=== PATIENT | female | born 1985 | race Caucasian/White ===

== ENCOUNTER 2022-09-26 06:00 | Inpatient (IN) | payer OTHER ==
[~2022-09-26 06:00] MED LIST: CITRIC ACID/SODIUM CITRATE 30 ML UNIT-DOSE CUP PO ONE; ELECTROLYTE-148 SOLN 500 ML IV ONE
[2022-09-26] MEDS ORDERED: ELECTROLYTE-148 SOLN 1,000 ML IV SCH ×2 (06:30→10:00)
[2022-09-26 06:50] VITALS: BMI 31.8
[2022-09-26] MEDS ORDERED: morphine SULFATE/PF 1 MG/2 ML (2cc Syringe - QUVA) ONE (07:40)
[2022-09-26] MEDS ORDERED: MIDAZOLAM HCL 2 MG/2 ML SINGLE DOSE VIAL ONE (08:36)
[2022-09-26] MEDS ORDERED: morphine SULFATE/PF 1 MG/2 ML (2cc Syringe - QUVA) EP ONE (09:50)
[2022-09-26] MEDS ORDERED: ELECTROLYTE-148 SOLN 500 ML IV ONE (10:00)
[2022-09-26] MEDS ORDERED: CITRIC ACID/SODIUM CITRATE 30 ML UNIT-DOSE CUP PO ONE (10:00)
[2022-09-26] MEDS ORDERED: ACETAMINOPHEN 325 MG TABLET (FP) PO PRN (10:01)
[2022-09-26] MEDS ORDERED: METHYLERGONOVINE MALEATE 0.2 MG/1 ML AMP IM PRN (10:01)
[2022-09-26] MEDS: OXYTOCIN 20 UNITS in 0.9% NS 20 UNIT/1,000 ML INFUS.BAG IV SCH ×2 (10:30→20:30)
[2022-09-26] MEDS ORDERED: OXYTOCIN 20 UNITS in 0.9% NS 20 UNIT/1,000 ML INFUS.BAG IV ONE (10:35)
[2022-09-26] MEDS: IBUPROFEN 800 MG/8 ML IJ IVPB PRN ×2 (11:20→20:32)
[2022-09-26 20:15] VITALS: RESP 18
[2022-09-26] MEDS: FERROUS SO4 325 MG TABLET (FP) PO SCH (22:00)
[2022-09-26] MEDS ORDERED: ZOLPIDEM TARTRATE 5 MG TABLET PO ONE (22:00)
[2022-09-27] MEDS: oxyCODONE HCL 5 MG TABLET PO PRN ×4 (06:15→22:39)
[2022-09-27] MEDS: SIMETHICONE 80 MG TAB.CHEW (FP) PO PRN ×2 (06:15→20:18)
[2022-09-27 07:12] LABS: BASO % 0.2 % (0-2.0); EOS % 0.5 % (0-4.5); HEMATOCRIT 26.9 % (32.4-45.2); HEMOGLOBIN 9.3 GM/dL (10.7-15.3); LYMPH % 12.3 % (8-40); MCH 30.1 pg (25.7-33.7); MCHC 34.7 g/dl (32.0-36.0); MEAN CELL VOLUME 86.6 fl (80-96); MEAN PLT VOLUME 8.3 fl (7.5-11.1); PLATELET COUNT 173 10^3/uL (134-434); RBC 3.11 M/mm3 (3.60-5.2); RDW 12.4 % (11.6-15.6); WHITE BLOOD COUNT 12.2 K/mm3 (4.0-10.0)
[2022-09-27] MEDS: IBUPROFEN 600 MG TABLET (FP) PO PRN ×2 (09:06→20:19)
[2022-09-27] MEDS: PRENATAL VITAMINS W/ FOLIC ACID TABLET (FP) PO SCH (09:06)
[2022-09-27] MEDS: FERROUS SO4 325 MG TABLET (FP) PO SCH ×2 (09:06→22:13)
[2022-09-27] MEDS ORDERED: BISACODYL 10 MG SUPP.RECT RC PRN (10:01)
[2022-09-27] MEDS: SENNOSIDES/DOCUSATE COMBO (SENNA PLUS) TABLET (UD) PO PRN (20:18)
[2022-09-27] MEDS ORDERED: ZOLPIDEM TARTRATE 5 MG TABLET PO ONE (22:30)
[2022-09-28] MEDS: IBUPROFEN 600 MG TABLET (FP) PO PRN (08:28)
[2022-09-28] MEDS: SIMETHICONE 80 MG TAB.CHEW (FP) PO PRN ×3 (08:29→22:11)
[2022-09-28] MEDS: FERROUS SO4 325 MG TABLET (FP) PO SCH ×2 (09:58→22:11)
[2022-09-28] MEDS: PRENATAL VITAMINS W/ FOLIC ACID TABLET (FP) PO SCH (09:58)
[2022-09-28] MEDS: oxyCODONE HCL 5 MG TABLET PO PRN ×3 (12:21→22:11)
[2022-09-28] MEDS ORDERED: ZOLPIDEM TARTRATE 5 MG TABLET PO ONE ×2 (20:45→22:00)
[2022-09-28] MEDS: SENNOSIDES/DOCUSATE COMBO (SENNA PLUS) TABLET (UD) PO PRN (22:11)
[2022-09-29] MEDS: IBUPROFEN 600 MG TABLET (FP) PO PRN ×2 (05:43→10:01)
[2022-09-29] MEDS: SIMETHICONE 80 MG TAB.CHEW (FP) PO PRN ×2 (05:43→10:01)
[2022-09-29 09:45] VITALS: BP 122/79; PULSE 92; TEMP 98.9
[2022-09-29] MEDS: PRENATAL VITAMINS W/ FOLIC ACID TABLET (FP) PO SCH (10:00)
[2022-09-29] MEDS: FERROUS SO4 325 MG TABLET (FP) PO SCH (10:00)
== END 2022-09-29 12:45 | disposition home or self-care (01) | DRG 540 ==
LOC: JLDR 06:00 → J3W 10:50
PROVIDERS: ADMIT Obstetrics & Gynecology; ATTEND Obstetrics & Gynecology
PROC: 10D00Z1 Extraction of Products of Conception, Low, Open Approach (ICD-10-PCS; principal; 2022-09-26)
DX: O36.63X0 Maternal care for excessive fetal growth, third trimester, not applicable or unspecified (principal); O34.13 Maternal care for benign tumor of corpus uteri, third trimester; Z3A.39 39 weeks gestation of pregnancy; Z37.0 Single live birth
CPT/HCPCS: 36415; 85025; 88305-TC; 88307-TC; 94010

== ENCOUNTER 2022-11-28 18:16 | Inpatient (IN) | payer OTHER ==
[2022-11-28 20:23] LABS: BASO % 0.8 % (0-2.0); EOS % 1.2 % (0-4.5); HEMATOCRIT 39.2 % (32.4-45.2); HEMOGLOBIN 12.6 GM/dL (10.7-15.3); LYMPH % 33.6 % (8-40); MCH 27.7 pg (25.7-33.7); MCHC 32.3 g/dl (32.0-36.0); MEAN CELL VOLUME 85.8 fl (80-96); MEAN PLT VOLUME 8.7 fl (7.5-11.1); MONO % 14.6 % (3.8-10.2); NEUT % 49.8 % (42.8-82.8); PLATELET COUNT 208 10^3/uL (134-434); RBC 4.57 M/mm3 (3.60-5.2); WHITE BLOOD COUNT 5.2 K/mm3 (4.0-10.0)
[2022-11-28 20:43] LABS: POTASSIUM 4.1 mmol/L (3.5-5.1)
[2022-11-28 20:44] LABS: CALCIUM 9.1 mg/dL (8.5-10.1)
[2022-11-28 20:45] LABS: ALBUMIN 3.4 g/dl (3.4-5.0); BLOOD UREA NITROGEN 15.1 mg/dL (7-18)
[2022-11-28] MEDS ORDERED: CLINDAMYCIN 600MG PREMIX IVPB 600 MG/50 ML BAG IVPB ONE ×2 (20:45→20:49)
[2022-11-28 20:48] LABS: CREATININE 0.6 mg/dL (0.55-1.3)
[2022-11-28] MEDS ORDERED: KETOROLAC TROMETHAMINE 30 MG/1 ML VIAL IVPUSH ONE (20:49)
[2022-11-28 20:50] LABS: BILIRUBIN,TOTAL 0.2 mg/dL (0.2-1); TOT PROT 6.5 g/dl (6.4-8.2)
[2022-11-28] MEDS ORDERED: KETOROLAC TROMETHAMINE 15 MG/ML VIAL ONE (20:54)
[2022-11-29] MEDS ORDERED: PIPERACILLIN/TAZOB 3.375 GM 3.375 GM/50 ML BAG IVPB SCH (00:15)
[2022-11-29] MEDS ORDERED: DOXYCYCLINE HYCLATE 100 MG VIAL ONE (00:19)
[2022-11-29] MEDS ORDERED: PIPERACILLIN/TAZOB 3.375 GM 3.375 GM/50 ML BAG IVPB ONE (00:20)
[2022-11-29] MEDS: DOXYCYCLINE INJECTION 100 MG in DEXTROSE 5%-WATER 100 ML IVPB SCH ×2 (00:29→09:54)
[2022-11-29 01:26] VITALS: BMI 28.6
[2022-11-29] MEDS: PIPERACILLIN/TAZOB 3.375 GM 3.375 GM in DEXTROSE 5%-WATER - 50 ML IVPB SCH ×5 (05:28→17:17)
[2022-11-29 09:31] LABS: BASO % 0.3 % (0-2.0); EOS % 1.1 % (0-4.5); HEMATOCRIT 40.1 % (32.4-45.2); HEMOGLOBIN 13.1 GM/dL (10.7-15.3); LYMPH % 25.3 % (8-40); MCH 28.2 pg (25.7-33.7); MCHC 32.6 g/dl (32.0-36.0); MEAN CELL VOLUME 86.3 fl (80-96); MONO % 10.8 % (3.8-10.2); NEUT % 62.5 % (42.8-82.8); PLATELET COUNT 188 10^3/uL (134-434); RBC 4.65 M/mm3 (3.60-5.2); WHITE BLOOD COUNT 5.7 K/mm3 (4.0-10.0)
[2022-11-29] MEDS: ENOXAPARIN NA (PORCINE) 40 MG/0.4 ML DISP.SYRIN SQ SCH (09:54)
[2022-11-29 10:24] LABS: POTASSIUM 4.1 mmol/L (3.5-5.1)
[2022-11-29 10:30] LABS: ALBUMIN 3.2 g/dl (3.4-5.0); MAGNESIUM 2.2 mg/dL (1.8-2.4)
[2022-11-29 10:33] LABS: CREATININE 0.6 mg/dL (0.55-1.3); PHOSPHOROUS 4.2 mg/dL (2.5-4.9)
[2022-11-29 10:34] LABS: BILIRUBIN,TOTAL 0.6 mg/dL (0.2-1); TOT PROT 6.4 g/dl (6.4-8.2)
[2022-11-29 10:36] LABS: BLOOD UREA NITROGEN 14.1 mg/dL (7-18)
[2022-11-29] MEDS: DOXYCYCLINE HYCLATE 100 MG CAPSULE PO SCH (17:17)
[2022-11-30] MEDS: PIPERACILLIN/TAZOB 3.375 GM 3.375 GM in DEXTROSE 5%-WATER - 50 ML IVPB SCH ×3 (02:00→17:44)
[2022-11-30] MEDS: ACETAMINOPHEN 325 MG TABLET (FP) PO PRN ×2 (03:41→18:21)
[2022-11-30] MEDS: DOXYCYCLINE HYCLATE 100 MG CAPSULE PO SCH ×2 (10:18→17:44)
[2022-11-30] MEDS: ENOXAPARIN NA (PORCINE) 40 MG/0.4 ML DISP.SYRIN SQ SCH (10:27)
[2022-11-30 18:39] VITALS: RESP 18
[2022-12-01] MEDS: PIPERACILLIN/TAZOB 3.375 GM 3.375 GM in DEXTROSE 5%-WATER - 50 ML IVPB SCH ×3 (01:48→18:07)
[2022-12-01] MEDS: ENOXAPARIN NA (PORCINE) 40 MG/0.4 ML DISP.SYRIN SQ SCH ×2 (10:43→10:54)
[2022-12-01] MEDS: DOXYCYCLINE HYCLATE 100 MG CAPSULE PO SCH ×2 (10:43→18:07)
[2022-12-01] MEDS: BANATROL PLUS POWDER PACKET PO SCH ×2 (14:36→21:47)
[2022-12-02] MEDS: PIPERACILLIN/TAZOB 3.375 GM 3.375 GM in DEXTROSE 5%-WATER - 50 ML IVPB SCH ×2 (02:13→10:36)
[2022-12-02] MEDS: BANATROL PLUS POWDER PACKET PO SCH ×2 (05:24→14:24)
[2022-12-02 10:08] LABS: BASO % 0.6 % (0-2.0); EOS % 1.4 % (0-4.5); HEMATOCRIT 40.5 % (32.4-45.2); HEMOGLOBIN 13.3 GM/dL (10.7-15.3); LYMPH % 31.1 % (8-40); MCH 28.2 pg (25.7-33.7); MCHC 32.8 g/dl (32.0-36.0); MEAN CELL VOLUME 85.9 fl (80-96); MEAN PLT VOLUME 8.7 fl (7.5-11.1); MONO % 8.9 % (3.8-10.2); PLATELET COUNT 201 10^3/uL (134-434); RBC 4.72 M/mm3 (3.60-5.2); RDW 14.6 % (11.6-15.6); WHITE BLOOD COUNT 3.8 K/mm3 (4.0-10.0)
[2022-12-02 10:25] LABS: POTASSIUM 4.1 mmol/L (3.5-5.1)
[2022-12-02 10:31] LABS: CALCIUM 9.1 mg/dL (8.5-10.1)
[2022-12-02 10:32] LABS: ALBUMIN 3.3 g/dl (3.4-5.0)
[2022-12-02 10:33] LABS: BLOOD UREA NITROGEN 18.5 mg/dL (7-18)
[2022-12-02] MEDS: DOXYCYCLINE HYCLATE 100 MG CAPSULE PO SCH (10:35)
[2022-12-02 10:36] LABS: BILIRUBIN,TOTAL 0.7 mg/dL (0.2-1); CREATININE 0.9 mg/dL (0.55-1.3)
[2022-12-02 10:37] LABS: TOT PROT 6.5 g/dl (6.4-8.2)
[2022-12-02 11:12] VITALS: BP 108/64; PULSE 82; TEMP 98.5
[2022-12-03 17:06] LABS: GLIADIN ANTIBODY IGA 10 units (0-19); GLIADIN ANTIBODY IGG 7 units (0-19); TRANSGLUTAMINASE IGG < 2 U/mL (0-5)
== END 2022-12-02 14:45 | disposition home or self-care (01) | DRG 383 ==
LOC: JER 18:16 → JERBED 20:46 → J5S 11-29 01:07
PROVIDERS: ADMIT Internal Medicine
PROC: 0Y9J3ZZ Drainage of Left Lower Leg, Percutaneous Approach (ICD-10-PCS; principal; 2022-11-30)
PROC: 0Y9J3ZZ Drainage of Left Lower Leg, Percutaneous Approach (ICD-10-PCS; 2022-12-02)
DX: L03.116 Cellulitis of left lower limb (principal); W57.XXXA Bitten or stung by nonvenomous insect and other nonvenomous arthropods, initial encounter; Y93.89 Activity, other specified; Y92.89 Other specified places as the place of occurrence of the external cause; Y99.8 Other external cause status
CPT/HCPCS: 36415; 80053; 81377; 81383; 82784; 83516; 83735; 84100; 84703; 85025; 85651; 86140; 86618; 86666; 87070; 87205; 87324; 87449; 93005; 93010; 93971-TC; 99285-25